=== PATIENT | female | born 1950 | race Caucasian/White ===

== ENCOUNTER 2024-01-29 23:35 | Emergency (ER) | payer MEDICARE, OTHER ==
[~2024-01-29] VITALS: Ht 162.6 cm; Wt 59.0 kg
[~2024-01-29 23:35] MED LIST: IBUP-1842 PO
[2024-01-29 23:41] VITALS: BP 135/66; PULSE 86; RESP 16; TEMP 98.8; O2SAT 98
--- NOTE | 2024-01-29 23:45 | NUR ---
PATIENT PRESENTS TO ED WITH C/O SOMETHING BULGING OUT OF VAGINAL AREA . PT STATES SHE JUST NOTICED IT TODAY IN SHOWER . DENIES N/V/D; SKIN IS PINK/WARM/DRY; AAOX4 WITH EVEN AND STEADY GAIT; LUNGS CLEAR BL; HR EVEN AND REGULAR; PT DENIES ANY FEVER, CP, SOB, OR COUGH AT THIS TIME; PATIENT STATES PAIN OF 0/10 AT THIS TIME; VSS; PATIENT POSITIONED FOR COMFORT; HOB ELEVATED; BEDRAILS UP X2; BED DOWN. ER MD MADE AWARE OF PT STATUS. PMH : ASTHMA, TOTAL HYSTERECTOMY ALLERGIES: PENICILLINS
--- NOTE | 2024-01-29 23:54 | NUR ---
PT AMBULATED TO RESTROOM FOR URINE COLLECTION.
--- NOTE | 2024-01-30 00:06 | NUR ---
Luis etienne in [facility] - 01/30/24 at [address] Calvin examining patient.
--- NOTE | 2024-01-30 00:19 | NUR ---
Dr. Calvin examining patient.
[2024-01-30 00:40] VITALS: BP 131/41; PULSE 71; RESP 18; TEMP 97.8; O2SAT 94
--- NOTE | 2024-01-30 00:40 | NUR ---
Patient discharged with v/s stable. Written and verbal after care instructions given and explained. Patient verbalized understanding. Ambulatory with steady gait. All questions addressed prior to discharge. Advised to follow up with PMD.
== END 2024-01-30 00:40 | disposition home or self-care (01) ==
LOC: MED 23:35
DX: N81.4 Uterovaginal prolapse, unspecified (principal); J45.909 Unspecified asthma, uncomplicated; Z86.39 Personal history of other endocrine, nutritional and metabolic disease; Z90.710 Acquired absence of both cervix and uterus; Z79.899 Other long term (current) drug therapy; Z88.0 Allergy status to penicillin
CPT/HCPCS: 99284